=== PATIENT | male | born 1950 | race Caucasian/White ===

== ENCOUNTER → 2024-03-06 | Outpatient (CLI) | payer MEDICARE ==
[2024-03-06 10:34] LABS: Basophils # (A) 0.06 X 10*3/uL (0.00-0.10); Basophils % (A) 0.7 %; Eosinophils # (A) 0.12 X 10*3/uL (0.04-0.35); Eosinophils % (A) 1.4 %; HCT 41.9 % (39.6-50.0); HGB 13.7 g/dL (13.0-17.0); Lymphocytes # (A) 1.61 X 10*3/uL (0.90-5.00); Lymphocytes % (A) 18.6 %; MCHC 32.7 g/dL (32.0-37.0); Mean Platelet Volume 10.9 FL (9.5-12.2); Monocytes # (A) 0.72 X 10*3/uL (0.20-1.00); Monocytes % (A) 8.3 %; NRBC Per 100 WBC 0 X 10*3/uL (0.00-0.01); Neutrophils # (A) 6.12 X 10*3/uL (1.80-7.70); Neutrophils % (A) 70.5 %; Platelet Count 211 X 10*3/uL (140-440); RBC 4.15 X 10*6/uL (4.40-5.60); RDW 13.2 % (11.5-14.5); WBC 8.67 X 10*3/uL (4.50-10.00)
[2024-03-06 17:09] LABS: NT-Pro-B-Type Natriuretic Pept 344 pg/mL (0-125)
[2024-03-06 17:18] LABS: ALT 17 U/L (10-49); AST 16 U/L (14-35); Albumin 4.1 g/dL (3.8-4.9); Albumin/Globulin Ratio 1.95 Ratio (1.60-3.17); Alkaline Phosphatase 58 U/L (41-126); BUN/Creat Ratio 22.55 Ratio (12.00-20.00); Blood Urea Nitrogen 24.8 mg/dL (9.0-27.0); Calcium 9.3 mg/dL (8.7-10.3); Carbon Dioxide 21.4 mmol/L (21.6-31.8); Chloride 106 mmol/L (96-109); Globulin 2.1 g/dL (1.6-3.3); Glucose 137 mg/dL (70-110); Potassium 4.6 mmol/L (3.5-5.5); Sodium 143 mmol/L (135-145); Total Bilirubin 0.7 mg/dL (0.3-1.2); Total Protein 6.2 g/dL (6.2-8.2)
== END | disposition home or self-care (01) ==
LOC: LABWHC1 07:46
PROVIDERS: ATTEND Nurse Practitioner Family
DX: I10 Essential (primary) hypertension (principal); E66.9 Obesity, unspecified; R60.9 Edema, unspecified; R06.2 Wheezing; R06.02 Shortness of breath; Z86.711 Personal history of pulmonary embolism
CPT/HCPCS: 36415; 80053; 83036; 83880; 84443; 85025; 85379

== ENCOUNTER 2024-03-09 17:49 | Inpatient (IN) | payer MEDICARE ==
--- NOTE | 2024-03-09 18:17 | ED ---
General Adult HPI - General Chief complaint: Recheck/Abnormal Lab/Rx Stated complaint: Blood Clot Lung Time Seen by Provider: 03/09/24 17:57 Source: patient, family, RN notes reviewed Mode of arrival: wheelchair Limitations: no limitations - History of Present Illness Initial comments: Patient is a 73-year-old male present to the emergency department with concerns with difficulty breathing. Patient has had exertional dyspnea over the past week. No dyspnea at rest. No chest pain. No cough. Patient has had some leg swelling. Patient does have history of blood clot around 3 years ago however is not currently on any anticoagulation. - Related Data Home Medications Medication Instructions Recorded Confirmed Benazepril [Lotensin] 10 mg PO DAILY 03/09/24 03/09/24 Ketoconazole 2% Shampoo [Nizoral] 1 applic TOPICAL MOWEFR 03/09/24 03/09/24 allopurinoL 200 mg PO DAILY 03/09/24 03/09/24 hydroCHLOROthiazide 12.5 mg PO DAILY PRN 03/09/24 03/09/24 Allergies Allergy/AdvReac Type Severity Reaction Status Date / Time No Known Allergies Allergy Verified 03/09/24 19:34 Review of Systems ROS Statement: Those systems with pertinent positive or pertinent negative responses have been documented in the HPI. ROS Other: All systems not noted in ROS Statement are negative. Constitutional: Denies: fever Eyes: Denies: eye pain ENT: Denies: throat pain Respiratory: Reports: as per HPI, dyspnea Cardiovascular: Reports: as per HPI, dyspnea on exertion, edema. Denies: orthopnea Endocrine: Denies: fatigue Gastrointestinal: Denies: abdominal pain Past Medical History Past Medical History: Hypertension Additional Past Medical History / Comment(s): lung blood clot History of Any Multi-Drug Resistant Organisms: None Reported Past Surgical History: Adenoidectomy, Orthopedic Surgery, Tonsillectomy Additional Past Surgical History / Comment(s): left hip- 10 yrs ago, right shoulder sx Past Psychological History: No Psychological Hx Reported Smoking Status: Never smoker Past Alcohol Use History: Occasional Past Drug Use History: None Reported General Exam Limitations: no limitations General appearance: alert Head exam: Present: normocephalic Eye exam: Present: normal appearance Respiratory exam: Present: normal lung sounds bilaterally Cardiovascular Exam: Present: regular rate, normal rhythm GI/Abdominal exam: Present: soft. Absent: tenderness Extremities exam: Present: pedal edema Neurological exam: Present: alert Psychiatric exam: Present: normal affect, normal mood Skin exam: Present: normal color Course Vital Signs 03/09/24 03/09/24 03/09/24 17:52 17:59 18:00 Temperature 98.3 F 98.2 F Pulse Rate 51 L 53 L Respiratory 18 16 20 Rate Blood Pressure 159/73 148/60 O2 Sat by Pulse 96 97 Oximetry EKG Findings - EKG Results: EKG: interpreted by ERMD, sinus rhythm, normal axis, normal QRS, normal ST/T EKG shows: bradycardia Medical Decision Making - Medical Decision Making Was pt. sent in by a medical professional or institution (, PA, [employer], urgent care, hospital, or intermediate...) When possible be specific @ -Patient was sent over from radiology department Did you speak to anyone other than the patient for history (EMS, parent, family, police, friend...)? What history was obtained from this source @ - helps provide history of concerns Did you review nursing and triage notes (agree or disagree)? Why? @ -I reviewed and agree with nursing and triage notes Were old charts reviewed (outside hosp., previous admission, EMS record, old EKG, old radiological studies, urgent care reports/EKG's, intermediate records)? Report findings @ -Report reviewed from CT scan Differential Diagnosis (chest pain, altered mental status, abdominal pain women, abdominal pain men, vaginal bleeding, weakness, fever, dyspnea, syncope, headache, dizziness, GI bleed, back pain, seizure, CVA, palpatations, mental health, musculoskeletal)? @ -Differential Dyspnea: Coronary syndrome, arrhythmia, tamponade, asthma, COPD, pulmonary embolism, pneumonia, pneumothorax, pulmonary effusion, anaphylaxis, diabetic ketoacidosis, flailed chest, pulmonary contusion, diaphragmatic rupture, anemia, neuromuscular, this is not meant to be an all-inclusive list. EKG interpreted by me (3pts min.). @ -As above X-rays interpreted by me (1pt min.). @ -None done CT interpreted by me (1pt min.). @ -None done U/S interpreted by me (1pt. min.). @ -None done What testing was considered but not performed or refused? (CT, X-rays, U/S, labs)? Why? @ -None What meds were considered but not given or refused? Why? @ -None Did you discuss the management of the patient with other professionals (professionals i.e. , PA, [employer], lab, RT, psych nurse, social worker health services, codifier, teacher, chief development officer, rehabilitation caseworker)? Give summary @ -Case discussed with Dr. Moss who will admit covering Dr. Garcia he Was smoking cessation discussed for >3mins.? @ -No Was critical care preformed (if so, how long)? @ -31 minutes critical care time Were there social determinants of health that impacted care today? How? (Homelessness, low income, unemployed, alcoholism, drug addiction, transportatio n, low edu. Level, literacy, decrease access to med. care, group home, rehab)? @ -No Was there de-escalation of care discussed even if they declined (Discuss DNR or withdrawal of care, Hospice)? DNR status @ -No What co-morbidities impacted this encounter? (DM, HTN, Smoking, COPD, CAD, Cancer, CVA, ARF, Chemo, Hep., AIDS, mental health diagnosis, sleep apnea, morbid obesity)? @ -None Was patient admitted / discharged? Hospital course, mention meds given and route, prescriptions, significant lab abnormalities, going to OR and other pertinent info. @ -Patient presents with outpatient concerns for pulmonary embolism on CT scan. Patient will be admitted for pulmonary embolism. Admission orders written. Heparin started Undiagnosed new problem with uncertain prognosis? @ -No Drug Therapy requiring intensive monitoring for toxicity (Heparin, Nitro, Insulin, Cardizem)? @ -Heparin drip Were any procedures done? @ -No Diagnosis/symptom? @ -Pulmonary embolism Acute, or Chronic, or Acute on Chronic? @ -Acute Uncomplicated (without systemic symptoms) or Complicated (systemic symptoms)? @ -Default Side effects of treatment? @ -No Exacerbation, Progression, or Severe Exacerbation? @ -No Poses a threat to life or bodily function? How? (Chest pain, [place], CA, pneumonia, PE, COPD, DKA, ARF, appy, cholecystitis, CVA, Diverticulitis, Homicidal, Suicidal, threat to staff... and all critical care pts) @ -Threat to pulmonary function and oxygenation - Lab Data Result diagrams: 03/09/24 18:58 Lab Results 03/09/24 03/09/24 03/09/24 Range/Units 18:58 18:58 18:58 WBC 11.7 H (3.8-10.6) k/uL RBC 3.76 L (4.30-5.90) m/uL Hgb 12.3 L (13.0-17.5) gm/dL Hct 38.2 L (39.0-53.0) % MCV 101.5 H (80.0-100.0) fL MCH 32.8 (25.0-35.0) pg MCHC 32.3 (31.0-37.0) g/dL RDW 13.4 (11.5-15.5) % Plt Count 213 (150-450) k/uL MPV 9.0 Neutrophils % 73 % Lymphocytes % 18 % Monocytes % 6 % Eosinophils % 2 % Basophils % 0 % Neutrophils # 8.5 H (1.3-7.7) k/uL Lymphocytes # 2.1 (1.0-4.8) k/uL Monocytes # 0.7 (0-1.0) k/uL Eosinophils # 0.2 (0-0.7) k/uL Basophils # 0.1 (0-0.2) k/uL Macrocytosis Slight PT 11.0 (10.0-12.5) sec INR 1.0 (<1.2) APTT 24.1 (22.0-30.0) sec Plasma Lactic Acid Rene 1.5 (0.7-2.0) mmol/L Disposition Clinical Impression: Pulmonary embolism Disposition: ADMITTED IP TO THIS HOSP Condition: Stable Is patient prescribed a controlled substance at d/c from ED?: No Referrals: Megan Montiel MD [Primary Care Provider] - 1-2 days Time of Disposition: 20:00
[2024-03-09 19:06] LABS: Basophils # (A) 0.1 k/uL (0-0.2); Basophils % (A) 0 %; Eosinophils # (A) 0.2 k/uL (0-0.7); Eosinophils % (A) 2 %; HCT 38.2 % (39.0-53.0); HGB 12.3 gm/dL (13.0-17.5); Lymphocytes # (A) 2.1 k/uL (1.0-4.8); Lymphocytes % (A) 18 %; MCH 32.8 pg (25.0-35.0); MCHC 32.3 g/dL (31.0-37.0); MCV 101.5 fL (80.0-100.0); Macrocytosis Slight; Monocytes # (A) 0.7 k/uL (0-1.0); Monocytes % (A) 6 %; Neutrophils # (A) 8.5 k/uL (1.3-7.7); Neutrophils % (A) 73 %; Platelet Count 213 k/uL (150-450); RBC 3.76 m/uL (4.30-5.90); RDW 13.4 % (11.5-15.5); WBC 11.7 k/uL (3.8-10.6)
[2024-03-09] MEDS ORDERED: HEPARIN SODIUM 1,000 UN/ML (10ML VL) IV PRN (19:18)
[2024-03-09 19:44] LABS: Partial Thromboplastin Time 24.1 sec (22.0-30.0)
[2024-03-09] MEDS ORDERED: NALOXONE 0.4 MG/ML 1 ML VIAL IV PRN (20:00)
[2024-03-09] MEDS: HEPARIN SOD,PORK IN 0.45% NACL 25,000 UNIT in 0.45% NACL 1 250ML.BAG IV SCH (20:05)
[2024-03-09] MEDS: HEPARIN SODIUM 1,000 UN/ML (10ML VL) IV ONE (20:06)
[2024-03-09 20:19] LABS: ALT 14 U/L (4-49); AST 18 U/L (17-59); African American GFR (CKD) >90 (>60 ml/min/1.73 sqM); Albumin 3.4 g/dL (3.5-5.0); Alkaline Phosphatase 54 U/L (38-126); Anion Gap 3 mmol/L; Blood Urea Nitrogen 23 mg/dL (9-20); Carbon Dioxide 27 mmol/L (22-30); Chloride 109 mmol/L (98-107); Glucose 105 mg/dL (74-99); Non-African American GFR(CKD) 86 (>60 ml/min/1.73 sqM); Potassium 4.2 mmol/L (3.5-5.1); Sodium 139 mmol/L (137-145); Total Bilirubin 1.2 mg/dL (0.2-1.3); Total Protein 5.5 g/dL (6.3-8.2)
[2024-03-09 20:28] LABS: NT-Pro-B-Type Natriuretic Pept 796 pg/mL
[2024-03-09] MEDS: FAMOTIDINE 20 MG TAB PO SCH (21:16)
--- NOTE | 2024-03-09 23:58 | P.HPIM ---
History of Present Illness H&P Date: 03/09/24 Patient is a 73-year-old male with a PMH of hypertension, gout, and history of PE who presented to the emergency room sent in after an outpatient CT chest was concerning for pulmonary embolism. The patient reports that over the past several months, he has been experiencing bilateral lower extremity edema and has been somewhat inactive. During this time, he has also developed exertional dyspnea and his PCP had ordered a D-dimer which was elevated and subsequently a CT chest which she underwent earlier today. The scan revealed few scattered segmental and subsegmental pulmonary emboli without evidence of right heart strain. Patient denies experiencing chest discomfort or dyspnea at rest. Denies recent travel or trauma. He denies experiencing lower extremity pain but does note chronic lower extremity edema. Denies cough, fever, chills, nausea, vomiting, abdominal pain, diarrhea. Of note, the patient was previously diagnosed with a pulmonary embolism 3 years ago and took several month course of Eliquis which was subsequently discontinued by his PCP. EKG in the emergency room revealed sinus bradycardia with sinus arrhythmia at 53 bpm as reviewed by me with no ST/T wave changes noted. Laboratory evaluation was remarkable for leukocytosis of 11.7, hemoglobin 12.3, proBNP 796 with troponin less than 0.012. The patient's SpO2 was 96% on room air in the emergency room. ED documentation reviewed and case discussed with ED provider. Review of systems: Pertinent positives and negatives as discussed in HPI, a complete review of systems was performed and all other systems are negative. Physical examination: Vital signs reviewed General: non toxic, no distress, appears at stated age, morbidly obese Derm: no unusual rashes/lesions, warm Head: atraumatic, normocephalic, symmetric Eyes: EOMI, no lid lag, anicteric sclera, pupils equal round reactive to light ENT: Nose and ears atraumatic Neck: No cervical lymphadenopathy, trachea midline, supple Mouth: no lip lesion, mucus membranes moist Cardiovascular: S1S2 reg, no murmur, positive dorsalis pedis pulse bilateral, 2+ bilateral lower extremity pitting edema to thighs Lungs: CTA bilateral, no rhonchi, no rales, no accessory muscle use Abdominal: soft, nontender to palpation, no guarding Ext: muscle strength 5 out of 5 in all 4 extremities grossly, no gross muscle atrophy, no contractures, Neuro: CN II-XI grossly intact, no gross focal neuro deficits Psych: Alert, oriented, appropriate affect Assessment: Unprovoked bilateral pulmonary embolism Bilateral lower extremity edema, rule out CHF Leukocytosis, likely due to acute stressor with no signs of active infection at this time Chronic conditions: Hypertension, gout Imaging: EKG in the emergency room revealed sinus bradycardia with sinus arrhythmia at 53 bpm as reviewed by me with no ST/T wave changes noted. Data Review: Laboratory evaluation was remarkable for leukocytosis of 11.7, hemoglobin 12.3, proBNP 796 with troponin less than 0.012. The patient's SpO2 was 96% on room air in the emergency room. Plan: Initiate patient on Eliquis 10 mg p.o. twice daily x 7 days Obtain echocardiogram Monitor CBC Resume home medications DVT prophylaxis: Eliquis The patient is admitted with an anticipated less than 2 midnight stay for evaluation of PEs CODE STATUS: Full Code Discussed with: Patient Anticipated discharge place: Home Past Medical History Past Medical History: Hypertension Additional Past Medical History / Comment(s): lung blood clot History of Any Multi-Drug Resistant Organisms: None Reported Past Surgical History: Adenoidectomy, Orthopedic Surgery, Tonsillectomy Additional Past Surgical History / Comment(s): left hip- 10 yrs ago, right shoulder sx Past Psychological History: No Psychological Hx Reported Smoking Status: Never smoker Past Alcohol Use History: Occasional Past Drug Use History: None Reported - Past Family History Mother Family Medical History: Hypertension Medications and Allergies Home Medications Medication Instructions Recorded Confirmed Type Benazepril [Lotensin] 10 mg PO DAILY 03/09/24 03/09/24 History Ketoconazole 2% Shampoo [Nizoral] 1 applic TOPICAL MOWEFR 03/09/24 03/09/24 History allopurinoL 200 mg PO DAILY 03/09/24 03/09/24 History hydroCHLOROthiazide 12.5 mg PO DAILY PRN 03/09/24 03/09/24 History Allergies Allergy/AdvReac Type Severity Reaction Status Date / Time No Known Allergies Allergy Verified 03/09/24 19:34 Physical Exam Vitals: Vital Signs Temp Pulse Resp BP Pulse Ox 03/09/24 19:59 97.9 F 52 L 17 126/73 97 03/09/24 18:00 20 03/09/24 17:59 98.2 F 53 L 16 148/60 97 03/09/24 17:52 98.3 F 51 L 18 159/73 96 Intake and Output 03/09/24 03/09/24 03/10/24 14:59 22:59 06:59 Other: Weight 172.365 kg Results CBC & Chem 7: 03/10/24 02:56 03/10/24 02:56 Labs: Abnormal Lab Results - Last 24 Hours (Table) 03/09/24 03/09/24 Range/Units 18:58 19:09 WBC 11.7 H (3.8-10.6) k/uL RBC 3.76 L (4.30-5.90) m/uL Hgb 12.3 L (13.0-17.5) gm/dL Hct 38.2 L (39.0-53.0) % MCV 101.5 H (80.0-100.0) fL Neutrophils # 8.5 H (1.3-7.7) k/uL Chloride 109 H (98-107) mmol/L BUN 23 H (9-20) mg/dL Glucose 105 H (74-99) mg/dL Total Protein 5.5 L (6.3-8.2) g/dL Albumin 3.4 L (3.5-5.0) g/dL
[2024-03-10] MEDS: Apixaban Initiation Dose--VTE 5 MG TAB PO SCH (01:31)
[2024-03-10 01:43] LABS: Basophils % (A) 0 %; Eosinophils # (A) 0.3 k/uL (0-0.7); Eosinophils % (A) 3 %; HCT 42.4 % (39.0-53.0); HGB 13.7 gm/dL (13.0-17.5); Lymphocytes # (A) 2.8 k/uL (1.0-4.8); Lymphocytes % (A) 27 %; MCH 32.9 pg (25.0-35.0); MCHC 32.3 g/dL (31.0-37.0); Macrocytosis Slight; Mean Platelet Volume 8.9; Monocytes # (A) 0.6 k/uL (0-1.0); Monocytes % (A) 6 %; Neutrophils # (A) 6.5 k/uL (1.3-7.7); Neutrophils % (A) 63 %; Platelet Count 186 k/uL (150-450); RBC 4.16 m/uL (4.30-5.90); WBC 10.3 k/uL (3.8-10.6)
[2024-03-10 03:30] LABS: Basophils % (A) 0 %; Eosinophils # (A) 0.2 k/uL (0-0.7); Eosinophils % (A) 2 %; HCT 39.2 % (39.0-53.0); HGB 12.6 gm/dL (13.0-17.5); Lymphocytes # (A) 2.2 k/uL (1.0-4.8); Lymphocytes % (A) 25 %; MCH 33.1 pg (25.0-35.0); MCHC 32.1 g/dL (31.0-37.0); MCV 102.9 fL (80.0-100.0); Macrocytosis Slight; Mean Platelet Volume 8.2; Monocytes # (A) 0.7 k/uL (0-1.0); Monocytes % (A) 8 %; Neutrophils # (A) 5.8 k/uL (1.3-7.7); Neutrophils % (A) 64 %; Platelet Count 166 k/uL (150-450); RBC 3.81 m/uL (4.30-5.90)
[2024-03-10 03:46] LABS: ALT 14 U/L (4-49); AST 19 U/L (17-59); African American GFR (CKD) >90 (>60 ml/min/1.73 sqM); Albumin 3.5 g/dL (3.5-5.0); Alkaline Phosphatase 48 U/L (38-126); Anion Gap 5 mmol/L; Blood Urea Nitrogen 22 mg/dL (9-20); Calcium 9.5 mg/dL (8.4-10.2); Carbon Dioxide 24 mmol/L (22-30); Chloride 108 mmol/L (98-107); Glucose 117 mg/dL (74-99); Non-African American GFR(CKD) 85 (>60 ml/min/1.73 sqM); Potassium 3.9 mmol/L (3.5-5.1); Sodium 137 mmol/L (137-145); Total Bilirubin 1.4 mg/dL (0.2-1.3); Total Protein 5.8 g/dL (6.3-8.2)
[2024-03-10] MEDS ORDERED: hydroCHLOROthiazide 12.5 MG CAP PO PRN (08:06)
[2024-03-10] MEDS: lisinopriL 10 MG TAB PO SCH (09:28)
[2024-03-10] MEDS: allopurinoL 100 MG TAB PO SCH (09:28)
--- NOTE | 2024-03-10 15:49 | P.PN ---
Subjective Progress Note Date: 03/10/24 Hospital course: Patient is a very pleasant 73-year-old male with a past medical history of hypertension, gout, and previous pulmonary emboli no longer on anticoagulation. He presented to the emergency department on 03/09/2024 as instructed by his PCP secondary to abnormal CT scan revealing bilateral pulmonary emboli. Upon arrival to our facility patient underwent evaluation in the emergency department. Vital signs upon arrival show blood pressure 159/73, heart rate 51, respiratory rate 18, temp 98.3 F, and SpO2 of 96% on room air. EKG was completed showing sinus bradycardia at 53 bpm with no significant T wave or ST abnormalities showing no signs of acute ischemia upon personal review and interpretation. Labs were completed and reviewed. CBC showing mild leukocytosis with WBC count of 11.7 and macrocytic anemia with hemoglobin of 12.3 and MCV of 101.5. Coagulation profile normal findings. BMP revealing hyperchloremia with chloride of 109 and mild prerenal azotemia with BUN of 23 otherwise normal findings. Blood glucose was 105. Magnesium 2.0. Liver profile normal findings. Outpatient CTA chest was reviewed showing few scattered segmental and subsegmental pulmonary emboli bilaterally with no evidence for right heart strain. Patient was started on high intensity heparin infusion for bilateral PE and admitted under our services at this time. Physical exam: Vital signs reviewed and stable. General: Nontoxic, no distress and appears stated age. Obese. Derm: Skin warm and dry, normal coloration for ethnicity. Head: Atraumatic, normocephalic and symmetric. Eyes: EOMs intact, no lid lag, and anicteric sclera Mouth: no lip lesions, mucus membranes moist Cardiovascular: regular rate and rhythm with normal S1S2, no murmur, positive posterior tibial pulses bilaterally, and cap refill < 2 seconds. Lungs: Respirations even, regular, and unlabored on room air. Lungs CTA bilaterally, no rhonchi, no rales, no wheezing, and no accessory muscle usage. Abdominal: soft, nontender to palpation, no guarding, no appreciable organomegaly Ext: ROM intact. No gross muscle atrophy, bilateral lower extremity edema, no contractures Neuro: Speech clear, face symmetrical and CN II-XII grossly intact with no noted focal neuro deficits Psych: Alert and oriented to person, place, time, and situation. Appropriate and pleasant affect. Assessment and Plan of Care: Bilateral unprovoked pulmonary emboli Bilateral lower extremity edema -Post with patient and hematology, patient to follow-up outpatient in their office postdischarge. -Transition from heparin infusion to Eliquis 10 mg twice daily x 7 days then 5 mg twice daily. -Oxygenation to be administered and titrated as needed to maintain SPO2 equal to or greater than 92%. Patient currently on room air. -Telemetry monitoring. -Monitor pulse-oximetry -Echocardiogram to be completed -Incentive Spirometry Hypertension -Continue daily medication regimen with hydrochlorothiazide 12.5 mg daily and lisinopril 10 mg daily. Data and imaging reviewed: Outpatient CTA chest was reviewed showing few scattered segmental and subsegmental pulmonary emboli bilaterally with no evidence for right heart strai n. CBC showing stable macrocytic anemia with hemoglobin of 12.6 and MCV of 102.9. BMP showing hyperchloremia with chloride of 108 otherwise normal findings. Glucose 117. PTT was supratherapeutic at 174.5, heparin infusion was discontinued and patient started on oral anticoagulation with Eliquis. Vital signs reviewed. Blood pressure 132/78, heart rate 55, respiratory rate 16, temp 97.7 F, and SpO2 of 96% on room air. CODE STATUS: Full code DVT prophylaxis: Eliquis Anticipated discharge date: Likely within the next 24 hours, awaiting completion of echocardiogram. Anticipated discharge place: Home Patient was seen independently by Nurse Pracitioner. This document was prepared using [employer] dictation software. Please allow for errors in automotive glass installer, while rare they do occur. Rob Oakley NP rendered care for this patient independently, reviewed the findin gs and plan as documented in the note above. I did not physically speak with or examine the patient on this date. Objective - Vital Signs Vital signs: Vital Signs Temp 97.7 F 03/10/24 06:55 Pulse 52 L 03/10/24 06:55 Resp 16 03/10/24 06:55 BP 137/55 03/10/24 06:55 Pulse Ox 96 03/10/24 06:55 FiO2 Intake & Output 03/09/24 03/10/24 03/10/24 18:59 06:59 18:59 Weight 172.365 kg - Labs CBC & Chem 7: 03/10/24 02:56 03/10/24 02:56 Labs: Abnormal Lab Results - Last 24 Hours (Table) 03/09/24 03/09/24 03/10/24 Range/Units 18:58 19:09 01:25 WBC 11.7 H (3.8-10.6) k/uL RBC 3.76 L (4.30-5.90) m/uL Hgb 12.3 L (13.0-17.5) gm/dL Hct 38.2 L (39.0-53.0) % MCV 101.5 H (80.0-100.0) fL Neutrophils # 8.5 H (1.3-7.7) k/uL APTT 174.5 H* (22.0-30.0) sec Chloride 109 H (98-107) mmol/L BUN 23 H (9-20) mg/dL Glucose 105 H (74-99) mg/dL Total Bilirubin (0.2-1.3) mg/dL Total Protein 5.5 L (6.3-8.2) g/dL Albumin 3.4 L (3.5-5.0) g/dL 03/10/24 03/10/24 03/10/24 Range/Units 01:25 02:56 02:56 WBC (3.8-10.6) k/uL RBC 4.16 L 3.81 L (4.30-5.90) m/uL Hgb 12.6 L (13.0-17.5) gm/dL Hct (39.0-53.0) % MCV 102.0 H 102.9 H (80.0-100.0) fL Neutrophils # (1.3-7.7) k/uL APTT (22.0-30.0) sec Chloride 108 H (98-107) mmol/L BUN 22 H (9-20) mg/dL Glucose 117 H (74-99) mg/dL Total Bilirubin 1.4 H (0.2-1.3) mg/dL Total Protein 5.8 L (6.3-8.2) g/dL Albumin (3.5-5.0) g/dL
--- NOTE | 2024-03-11 07:54 | CA ---
Transthoracic Echo Report Name: Marbin Juan Age: 73 Gender: M : 1950 Exam Date: 03/10/2024 15:39 Exam Location: [facility] Ht (in): 68 Wt (lb): 380 Ordering Physician: Millie Moss MD Attending/Referring Phys: Chemical Handler Christina Puente RDCS Procedure CPT: Indications: Fredy LE edema Cardiac Hx: Technical Quality: Technically difficult study Contrast 1: Definity Total Dose (mL): 1 Contrast 2: Total Dose (mL): MEASUREMENTS (Male / Female) Normal Values 2D ECHO LV Diastolic Diameter PLAX 5.0 cm 4.2 - 5.9 / 3.9 - 5.3 cm LV Systolic Diameter PLAX 3.4 cm IVS Diastolic Thickness 1.6 cm 0.6 - 1.0 / 0.6 - 0.9 cm LVPW Diastolic Thickness 1.5 cm 0.6 - 1.0 / 0.6 - 0.9 cm LV Relative Wall Thickness 0.6 RV Internal Dim ED PLAX 3.9 cm LA Systolic Diameter LX 3.9 cm 3.0 - 4.0 / 2.7 - 3.8 cm LA Volume 105.8 cm??? 18 - 58 / 22 - 52 cm??? LA Volume Index 35.5 cm???/m??? 16 - 28 cm???/m??? M-MODE Aortic Root Diameter MM 4.1 cm AV Cusp Separation MM 2.2 cm DOPPLER AV Peak Velocity 176.5 cm/s AV Peak Gradient 12.5 mmHg MV Area PHT 2.3 cm??? Mitral E Point Velocity 74.5 cm/s Mitral A Point Velocity 96.2 cm/s Mitral E to A Ratio 0.8 MV Deceleration Time 328.1 ms FINDINGS Left Ventricle Left ventricular ejection fraction is estimated at 55-60 %. Left ventricular cavity size normal. Moderately increased septal wall thickness. No obvious regional wall motion abnormalities. Right Ventricle Moderate right ventricular dilatation. Unable to estimate the right ventricular systolic pressure. Right Atrium Right atrium not well visualized. Left Atrium Moderately increased left atrial volume. Mildly increased left atrial area. Mitral Valve Mitral valve thickened. No mitral stenosis, regurgitation or prolapse. Aortic Valve Trileaflet aortic valve. No aortic valve stenosis or regurgitation. Tricuspid Valve Tricuspid valve not well visualized. No tricuspid stenosis, regurgitation or prolapse. Pulmonic Valve Structurally normal pulmonic valve. No pulmonic regurgitation. Pericardium No pericardial effusion. Aorta Moderate aortic dilatation at the level of the sinuses of valsalva 41 mm CONCLUSIONS Extremely difficult study for interpretation. Poorly visualized endocardium and intracardiac valves Normal LV systolic function with Definity being used The right ventricle is dilated Could not calculate or estimate the pulmonary artery systolic pressure Previewed by: Dr. Jose Clifton MD (Electronically Signed) Final Date: 11 March 2024 07:53
[2024-03-11 09:40] VITALS: BP 137/58; PULSE 57; RESP 16; TEMP 97
[2024-03-11] MEDS: hydroCHLOROthiazide 12.5 MG CAP PO SCH (09:51)
--- NOTE | 2024-03-11 12:51 | P.DS ---
Providers Date of admission: 03/09/24 20:03 Expected date of discharge: 03/11/24 Attending physician: Millie Moss MD [facility]: Discharge Diagnosis: Bilateral unprovoked pulmonary emboli Bilateral lower extremity edema Hypertension Hospital course: Patient is a very pleasant 73-year-old male with a past medical history of hypertension, gout, and previous pulmonary emboli no longer on anticoagulation. He presented to the emergency department on 03/09/2024 as instructed by his PCP secondary to abnormal CT scan revealing bilateral pulmonary emboli. [facility] Vital signs upon arrival show blood pressure 159/73, heart rate 51, respiratory rate 18, temp 98.3 F, and SpO2 of 96% on room air. EKG was completed showing sinus bradycardia at 53 bpm with no significant T wave or ST abnormalities showing no signs of acute ischemia upon personal review and interpretation. Labs were completed and reviewed. CBC showing mild leukocytosis with WBC count of 11.7 and macrocytic anemia with hemoglobin of 12.3 and MCV of 101.5. Coagulation profile normal findings. BMP revealing hyperchloremia with chloride of 109 and mild prerenal azotemia with BUN of 23 o therwise normal findings. Blood glucose was 105. Magnesium 2.0. Liver profile normal findings. Outpatient CTA chest was reviewed showing few scattered segmental and subsegmental pulmonary emboli bilaterally with no evidence for right heart strain. Patient was started on high intensity heparin infusion for bilateral PE and admitted under our services at this time. Patient was transferred to oral anticoagulant with Eliquis. Cardiogram was completed and discussed results with woodworking bench carpenter, Dr. Clifton. Echocardiogram showing preserved EF of 55 to 60% with dilated right ventricle and unable to estimate the pulmonary artery systolic pressure, CTA reported no signs of heart strain. Patient is free from any complaints at this time, he is maintaining oxygen saturations on room air at rest and with ambulation. Patient medically cleared for discharge at this time. Arrangements were made for patient to receive Eliquis and to follow-up with hematology for continued management of anticoagul ants. Patient was informed he will require anticoagulation for life as this is his second event of unprovoked pulmonary emboli. Physical exam: Vital signs reviewed and stable. General: Nontoxic, no distress and appears stated age. Obese. Derm: Skin warm and dry, normal coloration for ethnicity. Head: Atraumatic, normocephalic and symmetric. Eyes: EOMs intact, no lid lag, and anicteric sclera Mouth: no lip lesions, mucus membranes moist Cardiovascular: regular rate and rhythm with normal S1S2, no murmur, positive posterior tibial pulses bilaterally, and cap refill < 2 seconds. Lungs: Respirations even, regular, and unlabored on room air. Lungs CTA bilaterally, no rhonchi, no rales, no wheezing, and no accessory muscle usage. Abdominal: soft, nontender to palpation, no guarding, no appreciable organomegaly Ext: ROM intact. No gross muscle atrophy, bilateral lower extremity edema, no contractures Neuro: Speech clear, face symmetrical and CN II-XII grossly intact with no noted focal neuro deficits Psych: Alert and oriented to person, place, time, and situation. Appropriate and pleasant affect. A total of 33 minutes of time were spent preparing this complex discharge summary. Pt was discharged on 03/11/2024 at 8:08 AM. Patient was seen independently by Nurse Practitioner. This document was prepared using [employer] dictation software. 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 Rob Oakley NP rendered care for this patient independently, reviewed the fi ndings and plan as documented in the note above. I did not physically speak with or examine the patient on this date. Patient Condition at Discharge: Stable Plan - Discharge Summary New Discharge Prescriptions: New Apixaban [Eliquis Starter Pack (for VTE)] 5 - 10 mg PO DIRECTED 30 Days #1 each Famotidine [Pepcid] 20 mg PO BID 30 Days #60 tab Continue hydroCHLOROthiazide 12.5 mg PO DAILY PRN PRN Reason: Edema Benazepril [Lotensin] 10 mg PO DAILY allopurinoL 200 mg PO DAILY Ketoconazole 2% Shampoo [Nizoral] 1 applic TOPICAL MOWEFR Discharge Medication List Benazepril [Lotensin] 10 mg PO DAILY 03/09/24 [History] Ketoconazole 2% Shampoo [Nizoral] 1 applic TOPICAL MOWEFR 03/09/24 [History] allopurinoL 200 mg PO DAILY 03/09/24 [History] hydroCHLOROthiazide 12.5 mg PO DAILY PRN 03/09/24 [History] Apixaban [Eliquis Starter Pack (for VTE)] 5 - 10 mg PO DIRECTED 30 Days #1 each 03/10/24 [Rx] Famotidine [Pepcid] 20 mg PO BID 30 Days #60 tab 03/11/24 [Rx] Follow up Appointment(s)/Referral(s): Michelle Hansen MD [STAFF PHYSICIAN] - 2 Weeks Megan Montiel MD [Primary Care Provider] - 1-2 days Patient Instructions/Handouts: Pulmonary Embolism (DC) Activity/Diet/Wound Care/Special Instructions: Activity: As tolerated. Take breaks as needed. Diet: Heart healthy and carb consistent diet. Avoid salts, or foods with hidden salts such as canned or boxed foods and frozen dinners. Extra salt makes your heart work harder and traps the fluid in your body for longer. Special Instructions: Take all of your medications as directed and remember to keep all of your doctor's appointments and follow-up as needed. As we discussed at bedside, you will need to follow-up outpatient with nutrition services assistant office, Dr. Hansen, to get your monthly anticoagulant Eliquis. Was discussed with hematology RN [facility], they will be able to provide you with monthly free samples of this medication. Thank you for allowing us to participate in your care, it was truly a pleasure having you for our patient!!! . Discharge Disposition: HOME SELF-CARE
== END 2024-03-11 10:06 | disposition home or self-care (01) | DRG 176 ==
LOC: EC 17:49 → 3SCARD 20:03 → OBSVTOIN 03-10 17:51 → 3SCARD 03-10 22:22 → UNDODISOB 03-11 10:06
PROVIDERS: ADMIT Internal Medicine; ATTEND Internal Medicine
DX: I26.99 Other pulmonary embolism without acute cor pulmonale (principal); Z68.43 Body mass index [BMI] 50.0-59.9, adult; I11.9 Hypertensive heart disease without heart failure; E87.8 Other disorders of electrolyte and fluid balance, not elsewhere classified; E66.9 Obesity, unspecified; D53.9 Nutritional anemia, unspecified; M10.9 Gout, unspecified; R39.2 Extrarenal uremia; R00.1 Bradycardia, unspecified; Z79.899 Other long term (current) drug therapy; Z86.711 Personal history of pulmonary embolism; Z59.819 Housing instability, housed unspecified
CPT/HCPCS: 36415; 80053; 83605; 83735; 83880; 84484; 85025; 85610; 85730; 93005; 93306; 96365; 96366; 96376; 99291

== ENCOUNTER → 2024-03-09 | Outpatient (CLI) | payer MEDICARE ==
--- NOTE | 2024-03-09 17:34 | CT ---
EXAMINATION TYPE: CT angio chest CT DLP: 437.9 mGycm, Automated exposure control for dose reduction was used. DATE OF EXAM: 03/09/2024 5:15 PM COMPARISON: None CLINICAL INDICATION:Male, 73 years old with history of R06.02 SHORTNESS OF BREATH; SOB, positive dime r TECHNIQUE/CONTRAST: CTA scan of the thorax is performed with IV Contrast, patient injected with 100 mL of Isovue 370, MIP images are created and reviewed these are created on a separate workstation.. FINDINGS: Pulmonary Artery: Limited evaluation due to bolus timing. There is at least one filling defect within the left lower lobe pulmonary arterial vasculature series 4 image 85 additional right middle lobe fi lling defect series 4 image 103. Lungs/Pleura: No evidence of focal consolidation, pleural effusion or pneumothorax. Airway: Large airways are patent. Heart: Heart is within normal limits for size. Vasculature: No evidence of aortic aneurysm. Mediastinum: No gross evidence of adenopathy. Musculoskeletal: Mild degenerative disc disease changes are present throughout the thoracolumbar spin e. Soft Tissues/lymph nodes: Unremarkable. Lower neck: No significant findings. Upper Abdomen: No significant findings. IMPRESSION: Few scattered segmental and subsegmental pulmonary emboli. Evaluation slightly limited due to bolus t iming. No evidence for right heart strain. Findings to be communicated by electrical technician.
== END | disposition home or self-care (01) ==
LOC: RADCTMAIN 16:35
PROVIDERS: ATTEND Family Medicine
DX: I26.93 Single subsegmental thrombotic pulmonary embolism without acute cor pulmonale (principal); R79.1 Abnormal coagulation profile
CPT/HCPCS: 71275; Q9967